=== PATIENT | female | born 1970 | race Caucasian/White ===

== ENCOUNTER → 2017-09-06 | Outpatient (CLI) | payer OTHER ==
[~2017-09-06] MED LIST: ARMOUR THYROID90 M1 PO; ASA5UEC PO; CELEXA10 MG PO; COQ-10100 MG PO; DHEA25 M1 PO; DHEA50 MG PO; FISH OIL 1,001000 M2 PO; FLOMAX0.4 MG PO; HYDROCODONE-AP1 EAC6 PO; NATURE'S TEARS15 M1; NATURE-THROID130 MG PO; PYRIDIUM200 M2 PO; VITAMIN D3400 UNIT PO; [UNRECOGNIZED DRUG - CODE]; [UNRECOGNIZED DRUG - REMARK]
== END ==
LOC: M.ULTRA 14:43
DX: M79.661 Pain in right lower leg (principal); M79.89 Other specified soft tissue disorders

== ENCOUNTER 2017-09-17 22:06 | Emergency (ER) | payer OTHER ==
[~2017-09-17] VITALS: Ht 162.6 cm; Wt 99.8 kg
[~2017-09-17 22:06] MED LIST changes: -ARMOUR THYROID90 M1 PO; -ASA5UEC PO; -CELEXA10 MG PO; -DHEA50 MG PO; -[UNRECOGNIZED DRUG - REMARK]
[2017-09-17] MEDS ORDERED: ARMOUR THYROID90 M1 PO (22:16)
[2017-09-17] MEDS ORDERED: ASA5UEC PO (22:16)
[2017-09-17] MEDS ORDERED: CELEXA10 MG PO (22:16)
[2017-09-17] MEDS ORDERED: FISH OIL 1,001000 M2 PO (22:17)
[2017-09-17] MEDS ORDERED: [UNRECOGNIZED DRUG - REMARK] (22:17)
[2017-09-17] MEDS ORDERED: VITAMIN D3400 UNIT PO (22:17)
[2017-09-17] MEDS ORDERED: DHEA50 MG PO (22:17)
[2017-09-17 22:39] LABS: ABSOLUTE BASOPHILS 0.1 thou/uL (0.0-0.2); ABSOLUTE EOSINOPHILS 0.5 thou/uL (0.0-0.7); ABSOLUTE LYMPHOCYTES 2.8 thou/uL (0.8-5.3); ABSOLUTE MONOCYTES 0.7 thou/uL (0.0-1.2); ABSOLUTE NEUTROPHILS 6.2 thou/uL (1.6-8.1); BASOPHILS 1.3 %; LYMPHOCYTES 27.3 %; MCH 29.2 pg (26.0-34.0); MCHC 34.2 g/dL (28.0-37.0); MCV 85.3 fL (80.0-100.0); MONOCYTES 6.4 %; MPV 8.7 fl. (7.2-11.1); NUCLEATED RBCS 0 /100WBC; PLATELET COUNT* 227 thou/uL (150-400); RBC 4.81 mil/uL (4.20-5.00); RDW-CV 15.3 % (10.5-14.5); WBC 10.3 thou/uL (4.0-11.0)
[2017-09-17 22:44] LABS: CALCIUM 8.8 mg/dL (8.5-10.1); CREATININE 0.8 mg/dL (0.6-1.3); POTASSIUM 3.9 mmol/L (3.5-5.1)
[2017-09-17 22:48] LABS: ALBUMIN 3.2 g/dL (3.4-5.0); APTT 24.2 Seconds (25.0-31.3); TOTAL BILIRUBIN 0.3 mg/dL (<0.1-1.0); TOTAL PROTEIN 6.7 g/dL (6.4-8.2)
[2017-09-18] VITALS: BP 149/101
== END 2017-09-18 00:52 | disposition home or self-care (01) ==
LOC: M.ERS 22:06
PROVIDERS: Nurse Practitioner Family
DX: I80.01 Phlebitis and thrombophlebitis of superficial vessels of right lower extremity (principal); E03.9 Hypothyroidism, unspecified; Z86.718 Personal history of other venous thrombosis and embolism; Z88.1 Allergy status to other antibiotic agents; Z88.2 Allergy status to sulfonamides